=== PATIENT | female | born 1940 | race African-American/Black ===

== ENCOUNTER 2018-01-10 13:42 | Emergency (ER) | payer MEDICARE, MEDICAID ==
[~2018-01-10] VITALS: Ht 160 cm; Wt 51.3 kg
[2018-01-10 14:01] VITALS: BP 152/89
[2018-01-10 15:09] LABS: Basophils # (auto) 0.1 uL; Eosinophils # (auto) 0 uL; Hemoglobin 10.5 g/dL (12.2-16.2); Lymphocytes # (auto) 0.8 uL; Monocytes # (auto) 0.7 uL; Neutrophils # (auto) 2.6 uL; Platelet Count (auto) 135 10^3/uL (140-450)
[2018-01-10 15:20] LABS: Basophils % (auto) 1.2 % (0.0-2.0); Eosinophils % (auto) 0.6 % (0.0-7.0); Hematocrit 33.8 % (36.0-46.0); Lymphocytes % (auto) 19.2 % (10.0-50.0); Mean Corpuscular Hemoglobin 26.6 pg (28.0-32.0); Mean Corpuscular Hgb Conc. 31.1 g/dL (32.0-36.0); Mean Corpuscular Volume 85.3 fL (80.0-100.0); Monocytes % (auto) 15.9 % (0.0-12.0); Neutrophils % (auto) 63.1 % (37.0-80.0); Nucleated Red Blood Cells % 0.7 %; Red Blood Cells 3.96 10^6/uL (4.0-5.20); White Blood Cell 4.1 10^3/uL (4.4-10.8)
[2018-01-10 15:21] LABS: Alanine Aminotransferase 9 U/L (13-56); Albumin 3.2 g/dL (3.4-5.0); Alkaline Phosphatase 77 U/L (45-117); Anion Gap 11 (5-15); Aspartate Aminotransferase 14 U/L (15-37); BUN/Creatinine Ratio 20.9; Bilirubin, Total 0.2 mg/dL (0.2-1.0); Blood Urea Nitrogen 18 mg/dL (7-18); Calcium 9.8 mg/dL (8.5-10.1); Carbon Dioxide 19 mmol/L (21-32); Chloride 111 mmol/L (98-107); GFR African American 82 mL/min; GFR Non-African American 68 mL/min; Glucose 112 mg/dL (74-106); Potassium 4.7 mmol/L (3.5-5.1); Sodium 141 mmol/L (136-145); Total Protein 7.6 g/dL (6.4-8.2)
[2018-01-10 15:23] LABS: INR 1.06 (0.9-1.15); Partial Thromboplastin Time 26.8 sec (22.64-33.71); Prothrombin Time 11.6 sec (9.37-12.3)
== END 2018-01-10 17:02 | disposition left against medical advice (07) ==
LOC: ER 13:42
DX: R53.1 Weakness (principal); R41.82 Altered mental status, unspecified
CPT/HCPCS: 36415; 70450; 71045; 80053; 84484; 85025; 85610; 85730; 93005